=== PATIENT | female | born 1940 | race Caucasian/White ===

== ENCOUNTER 2017-01-09 06:59 | Emergency (ER) | payer MEDICARE, BC ==
[~2017-01-09 06:59] MED LIST: ALDACTONE50 M1 PO; ALPRAZOLAM ER1 M1 PO; AMBIEN10 MG; AMBIEN10 MG PO; ASPIR-LOW81 MG; AZELASTINE137 MCG/01; BACTROBAN15 G1 TP; CALCIUM 600 +1 EA10 PO; CALCIUM 600 +1 EAC6 PO; CALCIUM 600 MG1 EACH PO; CALCIUM 600 W/V1 TAB PO; CALCIUM PLUS D; CALCIUM600 MG PO; CLOBETASOL EMOL15 GM TP; COUMADIN1 MG; COUMADIN1 MG PO; COUMADIN2 MG; COUMADIN3 M1 PO; COUMADIN4 M1 PO; COUMADIN4 MG PO; COUMADIN5 MG PO; COUMADIN6 MG PO; COUMADIN7.5 MG PO; DILAUDID2 M1 PO; DITROPAN XL10 MG PO; DITROPAN5 MG PO; EQL FISH OIL 1,1 CA1 PO; EQL FISH OIL 11 EAC2 PO; FISH OIL1 CAP; FLAGYL500 MG; FLONASE ALLERG9.9 ML NS; FLONASE16 G3 NS; FLONASE16 GM NS; FLOVENT RO50 MCG/DIS; KEFLEX500 M1 PO; KEFLEX500 M4 PO; KLOR-CON 1010 MEQ; KLOR-CON 1010 MEQ PO; KLOR-CON-1010 MEQ PO; LEVOTHROID175 MCG; LOVENOX100 MG/ML SQ; LOVENOX40 MG/0.4 SQ; LOVENOX80 MG/0.1 SC; LOVENOX80 MG/0.1 SQ; MACROBID 100 M100 MG; MAG-OXIDE400 MG PO; MAGNACAPS100 MG; MAGNESIUM OXID400 M1 PO; MAGNESIUM PO; MAGOXIDE; MAXZIDE 75/50 T1 TAB PO; MILK OF MAGNESIA PO; MIRALAX17 G2 PO; MOBIC7.5 MG; MUCINEX600 M1 PO; MUCINEX600 MG PO; MULTIVITAMIN1 TAB; MULTIVITAMIN1 TAB PO; OXYCODONE-APAP; OXYCONTIN10 M1 PO; OXYTROL1 PATCH.BW; PERCOCET 5-3251 EACH PO; PERCOCET 5/3251 TAB PO; PHENERGAN12.5 MG/SU; PHENERGAN25 MG/SUPP; POTASSIUM CHLO10 ME2 PO; PREVACID; PRILOSEC OTC20 M1 PO; PRILOSEC OTC20 MG PO; PRILOSEC40 MG PO; PROBIOTIC1 EA10 PO; PROMETH-CODEIN 65 ML PO; PROMETHAZINE HC25 MG; PROMETHAZINE-C118 ML PO; PROMETHAZINE25 MG PR; PROTONIX40 MG; PROTONIX40 MG PO; SENNA S TABLET1 EACH PO; SPIRONOLACTONE100 MG PO; SYNTHROID150 MC1 PO; SYNTHROID175 MCG PO; SYNTHROID200 MCG; TRIAMTERENE; TRIAMTERENE-HC1 EAC1 PO; TRIAMTERENE-HC1 EAC2 PO; TRIAMTERENE-HCT1 T; TYLENOL325 M2 PO; TYLENOL500 MG; ULTRAM50 M1 PO; ULTRAM50 MG; ULTRAM50 MG PO; VIBRAMYCIN100 M1 PO; VITAMIN D31000 UNI3 PO; VITAMIN D31000 UNI4 PO; VITAMIN D31000 UNIT PO; WELCHOL625 MG; XANAX0.5 MG PO; XANAX1 M1 PO; XANAX1 MG PO; ZANAFLEX4 MG PO; ZINC PO; ZOFRAN ODT4 MG/UDTAB PO; ZOFRAN ODT8 MG PO; ZOFRAN8 MG; [UNRECOGNIZED DRUG - OTHER]; [UNRECOGNIZED DRUG - OTHER]
[2017-01-09] MEDS ORDERED: ZOFRAN4 M2 PO (07:12)
[2017-01-09] MEDS ORDERED: FISH OIL300 M1 PO (07:12)
[2017-01-09 07:53] LABS: URINE BILIRUBIN NEGATIVE (NEG); URINE BLOOD MODERATE (NEG); URINE GLUCOSE (UA) NEGATIVE (NEG); URINE KETONE MODERATE (NEG); URINE LEUKOCYTE ESTERASE POSITIVE (NEG); URINE NITRITE NEGATIVE (NEG); URINE PROTEIN MODERATE (NEG)
[2017-01-09 07:54] LABS: URINE APPEARANCE CLEAR; URINE COLOR YELLOW
[2017-01-09 07:55] LABS: INR 2.8 INR (0.9-1.1)
[2017-01-09 08:07] LABS: ANION GAP 13 mmol/L (0-20); BLOOD UREA NITROGEN 10 mg/dl (6-24); CALCIUM 9.4 mg/dl (8.5-10.5); CARBON DIOXIDE-VENOUS 26 mmol/L (22-32); CHLORIDE 105 mmol/l (96-110); CREATININE 0.89 mg/dl (0.50-1.10); GLUCOSE 111 mg/dL (70-110); SODIUM 140 mmol/L (135-145); eGFR VALUE FOR BLACK 74 mL/Min
[2017-01-09 08:09] LABS: URINE EPITHELIAL CELLS 0-1 /[HPF] (0-10); URINE MUCUS 1+; URINE RBC 0-1 /[HPF] (0-5)
[2017-01-09 08:10] LABS: POTASSIUM 3.8 mmol/L (3.7-5.1)
[2017-01-09] MEDS ORDERED: PROMETHAZINE HC25 M3 PO (09:41)
== END 2017-01-09 10:10 ==
LOC: EDMED 06:59
PROVIDERS: Emergency Medicine
DX: R19.7 Diarrhea, unspecified (principal); R11.0 Nausea; Z86.711 Personal history of pulmonary embolism; Z86.718 Personal history of other venous thrombosis and embolism; E03.9 Hypothyroidism, unspecified; Z79.01 Long term (current) use of anticoagulants; Z79.890 Hormone replacement therapy; Z79.899 Other long term (current) drug therapy
CPT/HCPCS: J2405; J2550; J7030